=== PATIENT | female | born 1965 | race Caucasian/White ===

== ENCOUNTER 2018-04-18 07:13 | Emergency (ER) | payer MEDICAID ==
[2018-04-18 07:14] VITALS: BMI 25.7
[2018-04-18] MEDS ORDERED: Sodium Chloride 0.9% 1,000 ML IV STA (08:03)
--- NOTE | 2018-04-18 08:20 | ED PDOC ---
HPI: Abdomen Time Seen by Provider: 04/18/18 07:27 Chief Complaint (Nursing): Abdominal Pain Chief Complaint (Provider): Abdominal Pain History Per: Patient History/Exam Limitations: no limitations Onset/Duration Of Symptoms: Days (x3) Current Symptoms Are (Timing): Still Present Additional Complaint(s): 53 year old female, with a PMHx of hemorroids, presenting for evaluation of diarrhea and abdominal pain x3 days. Patient states her symptoms began with constipation and lower abdominal pain on Monday for which she drank prune juice. Patient is now reporting some diarrhea and 1 episode of vomiting yesterday. Patient denies outright fever, but reports some night sweats. Patient denies any chest pain, shortness of breath, difficulty breathing, urinary complaints or bloody stools. PMD: Dr. Lilliam Ingram, Past Medical History Reviewed: Historical Data, Nursing Documentation, Vital Signs Vital Signs: Last Vital Signs Temp 97.7 F 04/18/18 07:37 Pulse 101 H 04/18/18 07:37 Resp 18 04/18/18 07:37 BP 118/81 04/18/18 07:37 Pulse Ox 98 04/18/18 07:37 - Medical History PMH: Hypothyroidism - Surgical History Surgical History: (x2) Other surgeries: Thyroidectomy - Family History Family History: States: Unknown Family Hx - Home Medications Home Medications: Ambulatory Orders Medication Instructions Recorded Ciprofloxacin HCl [Cipro] 500 mg PO BID #20 tablet 04/18/18 Metronidazole [Flagyl] 500 mg PO BID #20 tablet 04/18/18 - Allergies Allergies/Adverse Reactions: Allergies Allergy/AdvReac Type Severity Reaction Status Date / Time No Known Allergies Allergy Verified 04/18/18 07:37 Review of Systems ROS Statement: Except As Marked, All Systems Reviewed And Found Negative Constitutional: Positive for: Sweats Gastrointestinal: Positive for: Nausea, Vomiting, Abdominal Pain, Diarrhea, Constipation Genitourinary Female: Negative for: Dysuria, Frequency, Incontinence, Hematuria Physical Exam - Reviewed Nursing Documentation Reviewed: Yes Vital Signs Reviewed: Yes - Physical Exam Appears: Positive for: Non-toxic, No Acute Distress Head Exam: Positive for: ATRAUMATIC, NORMAL INSPECTION, NORMOCEPHALIC Skin: Positive for: Normal Color, Warm, Dry Eye Exam: Positive for: EOMI, Normal appearance, PERRL Neck: Positive for: Normal, Painless ROM, Supple Cardiovascular/Chest: Positive for: Regular Rate, Rhythm. Negative for: Murmur Respiratory: Positive for: Normal Breath Sounds. Negative for: Respiratory Distress Gastrointestinal/Abdominal: Positive for: Soft, Tenderness (diffuse and suprapubic) Back: Positive for: Normal Inspection Extremity: Positive for: Normal ROM. Negative for: Deformity Neurologic/Psych: Positive for: Alert, Oriented (x3). Negative for: Motor/Sensory Deficits - Laboratory Results Result Diagrams: 04/18/18 08:00 04/18/18 08:00 - ECG O2 Sat by Pulse Oximetry: 98 (RA) Pulse Ox Interpretation: Normal - Progress Re-evaluation Time: 12:10 Condition: Re-examined, Improved Medical Decision Making Medical Decision Making: Impression: Abdominal pain. Differential diagnoses include, but are not limited to diverticulitis, colitis, SBO, UTI, r/o appendicitis Plan: -CT abdomen and pelvis -CMP -Lipase -Urine dip -Urine -CBC -Morphine 2mg IVP -NS 1L IVB -Toradol 30mg IVP -Reevaluation 1147 CT ABDOMEN AND PELVIS FINDINGS: LOWER THORAX: There is dependent atelectasis in the lung bases. LIVER: Normal in size with diffuse fatty infiltration. There is a 2.0 cm simple cyst in the anterior left hepatic lobe. No ductal dilatation. GALLBLADDER AND BILE DUCTS: No calcified gallstones. PANCREAS: Normal in size with homogeneous enhancement. No gross lesion or ductal dilatation. SPLEEN: Normal in size and appearance. ADRENALS: No discrete nodule. KIDNEYS AND URETERS: Normal in size with homogeneous enhancement. No hydronephrosis. No solid mass. VASCULATURE: No aortic aneurysm. BOWEL: The small bowel loops are normal in caliber. There is left colonic diverticulosis. There is severe circumferential mural thickening in the sigmoid colon and mild pericolonic inflammatory change without evidence for micro perforation or abscess. APPENDIX: Normal appendix. PERITONEUM: No free fluid. No free air. LYMPH NODES: No enlarged lymph nodes. BLADDER: Well distended and normal in appearance. REPRODUCTIVE: The uterus is bulky and anteverted. There are probable intramural fibroids.. BONES: No acute fracture. Within normal limits for the patient's age. OTHER FINDINGS: None. IMPRESSION: Acute sigmoid diverticulitis. No micro perforation or abscess. Left colonic diverticulosis. Suspect fibroid uterus. Fatty liver and stable left hepatic lobe simple cyst. 1205: CT reviewed and found significant for diverticulitis. Orders written for Cipro 500mg/200mL IVPB and Flagyl 500mg/100mL IVPB. Findings discussed with patient who agrees with plan for discharge home. Advised to follow up with PMD for further management. reviewed national guidelines on admission critieria patient is stable for outpatient treatment including no criteria for sepsis, no comorbidities, no complications on CT abdomen, and follow up available. Scribe Attestation: Documented by Fito Hart, acting as a scribe for Eugene Rivera MD. Provider Scribe Attestation: All medical record entries made by the Scribe were at my direction and personally dictated by me. I have reviewed the chart and agree that the record accurately reflects my personal performance of the history, physical exam, medical decision making, and the department course for this patient. I have also personally directed, reviewed, and agree with the discharge instructions and disposition. Disposition - Clinical Impression Clinical Impression: Diverticulitis - Patient ED Disposition Is Patient to be Admitted: No Doctor Will See Patient In The: Office Counseled Patient/Family Regarding: Studies Performed, Diagnosis, Need For Followup - Disposition Referrals: Lilliam Ingram MD [Medical Doctor] - Disposition: Routine/Home Disposition Time: 12:10 Condition: GOOD Additional Instructions: ULISES MATTHEWS, thank you for letting us take care of you today. Your provider was Eugene Rivera MD and you were treated for ABD PAIN. The emergency medical care you received today was directed at your acute symptoms. If you were prescribed any medication, please fill it and take as directed. It may take several days for your symptoms to resolve. Return to the Emergency Department if your symptoms worsen, do not improve, or if you have any other problems. Please contact your doctor or call one of the physicians/clinics you have been referred to that are listed on the Patient Visit Information form that is included in your discharge packet. Bring any paperwork you were given at discharge with you along with any medications you are taking to your follow up visit. Our treatment cannot replace ongoing medical care by a primary care provider outside of the emergency department. Thank you for allowing the [facility] team to be part of your care today. If you had an X-Ray or CT scan: A Radiologist will review the ED reading if any change in treatment is needed we will contact you. If you had a blood, urine, or wound culture: It will take several days for the results, if any change in treatment is needed we will contact you. If you had an STI test: It will take 48 hours for the results. Please call after 1 week if you have not heard back. Prescriptions: Ciprofloxacin HCl [Cipro] 500 mg PO BID #20 tablet Metronidazole [Flagyl] 500 mg PO BID #20 tablet Instructions: Diverticulitis (DC) Forms: PPT [facility] (Macedonian) Print Language: BAHAMIAN
[2018-04-18 08:22] LABS: BASO # 0.1 K/uL (0.0-0.2); BASO % 0.4 % (0.0-2.0); EOS # 0.1 K/uL (0.0-0.7); EOS % 0.6 % (0.0-4.0); HEMOGLOBIN 13.4 g/dL (12.0-16.0); LYMPH # 2.1 K/uL (1.0-4.3); LYMPH % 17.6 % (20.0-40.0); MEAN CELL VOLUME 89.5 fl (81.0-99.0); MEAN CORPUSCULAR HEMOGLOBIN 30.5 pg (27.0-31.0); MEAN CORPUSCULAR HGB CONC 34.1 g/dL (33.0-37.0); MEAN PLATELET VOLUME 8.1 fl (7.2-11.7); MONO # 1.1 K/uL (0.0-0.8); MONO % 9.4 % (0.0-10.0); NEUT # 8.8 K/uL (1.8-7.0); NRBC % 0.1 % (0.0-0.0); RBC 4.39 Mil/uL (3.80-5.20); RED CELL DISTRIBUTION WIDTH 13.3 % (11.5-14.5); WHITE BLOOD COUNT 12.2 K/uL (4.8-10.8)
[2018-04-18 08:29] LABS: ALB/GLOB RATIO 1.1 (1.0-2.1); ALBUMIN 4.1 g/dL (3.5-5.0); ALT/SGPT 35 U/L (9-52); AST/SGOT 31 U/L (14-36); BLOOD UREA NITROGEN 9 mg/dl (7-17); CALCIUM 8.6 mg/dL (8.4-10.2); GFR NON-AFRICAN AMERICAN > 60; LIPASE 79 U/L (23-300)
[2018-04-18] MEDS ORDERED: Iohexol 300 100 ML IJ ONE (08:42)
[2018-04-18] MEDS ORDERED: Sodium Chloride 0.9% 50 ML IV ONE (08:42)
--- NOTE | 2018-04-18 11:51 | CT ---
Date of service: 04/18/2018 PROCEDURE: CT Abdomen and Pelvis with contrast HISTORY: Lower abdominal pain COMPARISON: 10/13/2015. TECHNIQUE: CT scan of the abdomen and pelvis was performed after administration of intravenous contrast. Oral contrast was not administered. Coronal and sagittal reformatted images were obtained. Contrast dose: 95 mL Omnipaque 300 Radiation dose: Total exam DLP = 406.07 mGy-cm. This CT exam was performed using one or more of the following dose reduction techniques: Automated exposure control, adjustment of the mA and/or kV according to patient size, and/or use of iterative reconstruction technique. FINDINGS: LOWER THORAX: There is dependent atelectasis in the lung bases. LIVER: Normal in size with diffuse fatty infiltration. There is a 2.0 cm simple cyst in the anterior left hepatic lobe. No ductal dilatation. GALLBLADDER AND BILE DUCTS: No calcified gallstones. PANCREAS: Normal in size with homogeneous enhancement. No gross lesion or ductal dilatation. SPLEEN: Normal in size and appearance. ADRENALS: No discrete nodule. KIDNEYS AND URETERS: Normal in size with homogeneous enhancement. No hydronephrosis. No solid mass. VASCULATURE: No aortic aneurysm. BOWEL: The small bowel loops are normal in caliber. There is left colonic diverticulosis. There is severe circumferential mural thickening in the sigmoid colon and mild pericolonic inflammatory change without evidence for micro perforation or abscess. APPENDIX: Normal appendix. PERITONEUM: No free fluid. No free air. LYMPH NODES: No enlarged lymph nodes. BLADDER: Well distended and normal in appearance. REPRODUCTIVE: The uterus is bulky and anteverted. There are probable intramural fibroids.. BONES: No acute fracture. Within normal limits for the patient's age. OTHER FINDINGS: None. IMPRESSION: Acute sigmoid diverticulitis. No micro perforation or abscess. Left colonic diverticulosis. Suspect fibroid uterus. Fatty liver and stable left hepatic lobe simple cyst.
[2018-04-18] MEDS ORDERED: Ciprofloxacin 400mg/200ml D5W 400 MG/200 ML BAG IVPB STA (12:12)
[2018-04-18] MEDS ORDERED: metroNIDAZOLE 500mg/100ml NS 100 ML IVPB STA (12:12)
[2018-04-18] MEDS ORDERED: Ciprofloxacin 400mg/200ml D5W 400 MG/200 ML BAG IVPB ONE (12:38)
[2018-04-18] MEDS ORDERED: metroNIDAZOLE 500mg/100ml NS 100 ML IVPB ONE (14:05)
[2018-04-18 15:40] VITALS: BP 106/54; PULSE 83; RESP 20; TEMP 98.9
[2018-04-23 13:54] VITALS: O2SAT 98
== END 2018-04-18 15:28 | disposition home or self-care (01) ==
LOC: H.ER 07:13
DX: K57.92 Diverticulitis of intestine, part unspecified, without perforation or abscess without bleeding (principal)
CPT/HCPCS: 74177; 80053; 81025; 83690; 85025; 96361; 96365; 96375; 99283; J0744; J1885; J7030; Q9967